=== PATIENT | male | born 1950 | race Caucasian/White ===

== ENCOUNTER 2025-01-07 15:35 | Inpatient (IN) ==
[2025-01-07] MEDS ORDERED: IOPAMIDOL 100 ML BOTTLE IV ONE (15:36)
[2025-01-07] MEDS: IPRATROPIUM/ALBUTEROL 3 ML AMPUL.NEB NEB ONE ×3 (15:50→21:37)
[2025-01-07] MEDS: 0.9 % SODIUM CHLORIDE 1,000 ML IV ONE (15:55)
[2025-01-07] MEDS: methylPREDNISolone SOD SUCC 125 MG/2 ML VIAL IV ONE (15:55)
[2025-01-07] MEDS: LEVOFLOXACIN 750 MG/150 ML BAG IV ONE (16:07)
[2025-01-07 16:35] LABS: Basophils # (Auto) 0.01 K/mcL (0.00-0.30); Basophils % (Auto) 0.1 % (0.0-2.0); Eosinophils # (Auto) 0 K/mcL (0.00-0.70); Eosinophils % (Auto) 0 % (0.0-7.0); Hematocrit 40.2 % (40.1-51.0); Hemoglobin 13.2 g/dL (13.7-17.5); Lymphocytes # (Auto) 2.17 K/mcL (1.50-4.80); Lymphocytes % (Auto) 23.8 % (15.5-49.0); Mean Cell Volume 88.9 fL (80.0-100.0); Mean Corpuscular HGB Conc 32.8 g/dL (31.0-36.0); Monocytes # (Auto) 1.06 K/mcL (0.10-0.90); Monocytes % (Auto) 11.6 % (1.0-12.0); Neutrophils % (Auto) 64.4 % (38.0-78.0); Platelet Count 330 K/mcL (140-440); RBC 4.52 M/mcL (4.63-6.08); Red Cell Distribution Width 13.7 % (11.5-14.5); WBC 9.1 K/mcL (4.5-11.0)
[2025-01-07 17:01] LABS: Prothrombin Time 14.2 sec (11.9-14.5)
[2025-01-07 17:04] LABS: ALT/SGPT 23 U/L (<40); AST/SGOT 32 U/L (<40); Albumin 3.9 gm/dL (3.2-5.2); Alkaline Phosphatase 102 U/L (39-117); Bilirubin,Total 0.6 mg/dL (0.1-1.0); Blood Urea Nitrogen 24 mg/dL (8-23); Calcium 8.7 mg/dL (8.6-10.4); Carbon Dioxide 24 mmol/L (22-30); Chloride 99 mmol/L (96-108); Globulin 3.9 gm/dL (2.2-3.7); Glomerular Filtration Rate 46; Glucose 132 mg/dL (70-105); Potassium 3.9 mmol/L (3.3-5.1); Sodium 137 mmol/L (133-145)
[2025-01-07] MEDS ORDERED: ONDANSETRON 4 MG/2 ML VIAL IV PRN (20:12)
[2025-01-07] MEDS ORDERED: SENNOSIDES 1 TABLET PO PRN (20:12)
[2025-01-07] MEDS ORDERED: METOCLOPRAMIDE 10 MG/2 ML VIAL IV PRN (20:12)
[2025-01-07] MEDS ORDERED: POLYETHYLENE GLYCOL 3350 17 GM PACKET PO PRN (20:12)
[2025-01-07] MEDS ORDERED: ACETAMINOPHEN 325 MG TABLET PO PRN (20:12)
[2025-01-07] MEDS ORDERED: POTASSIUM CHLORIDE 20 MEQ TABLET PO PRN ×2 (20:12)
[2025-01-07] MEDS ORDERED: MAGNESIUM SULFATE 2 GM/50 ML BAG IV PRN (20:12)
[2025-01-07] MEDS ORDERED: POTASSIUM CHLORIDE 40 MEQ in DEXTROSE 5% IN WATER 500 ML IV PRN (20:12)
[2025-01-07] MEDS: IPRATROPIUM/ALBUTEROL 3 ML AMPUL.NEB NEB SCH (20:17)
[2025-01-07] MEDS: AZITHROMYCIN 500 MG in 0.9 % SODIUM CHLORIDE 250 ML IV SCH (20:52)
[2025-01-07] MEDS: DOCUSATE SODIUM 100 MG CAPSULE PO SCH (21:16)
[2025-01-07] MEDS: hydrALAZINE 20 MG/ML VIAL IV PRN (21:16)
[2025-01-07] MEDS: BUDESONIDE 0.5 MG/2 ML AMPUL.NEB NEB SCH (21:37)
[2025-01-07 22:57] LABS: Appearance,Urine Clear (Clear); Bacteria,Urine Few /hpf (0); Bilirubin,Urine Negative (Negative); Color,Urine Yellow; Glucose,Urine (UA) Negative (Negative); Ketones,Urine Negative (Negative); Leukocyte Esterase,Urine Negative /uL (Negative); Nitrate,Urine Negative (Negative); PH,Urine 5.5 (5.0-9.0); Protein,Urine 100 mg/dL (Negative); Specific Gravity,Urine 1.015 (1.000-1.035); Urine Blood Negative ery/mcL (Negative); Urine RBC 0 /hpf (0-3); Urine Squamous Epithelial Cell 4 /hpf (0-4); Urine WBC 2 /hpf (0-4); Urobilinogen,Urine Normal
[2025-01-07] MEDS: methylPREDNISolone SOD SUCC 125 MG/2 ML VIAL IV SCH (23:31)
[2025-01-07] MEDS: LABETALOL HCL 20 MG/4 ML VIAL IV PRN (23:32)
[2025-01-08 06:38] LABS: ALT/SGPT 19 U/L (<40); AST/SGOT 24 U/L (<40); Albumin 3.7 gm/dL (3.2-5.2); Alkaline Phosphatase 92 U/L (39-117); Bilirubin,Direct 0.2 mg/dL (<0.3); Bilirubin,Total 0.4 mg/dL (0.1-1.0); Blood Urea Nitrogen 25 mg/dL (8-23); Calcium 8.6 mg/dL (8.6-10.4); Carbon Dioxide 20 mmol/L (22-30); Chloride 101 mmol/L (96-108); Globulin 3.6 gm/dL (2.2-3.7); Glomerular Filtration Rate 54; Glucose 145 mg/dL (70-105); Lactate Dehydrogenase 184 U/L (135-225); Potassium 4.8 mmol/L (3.3-5.1); Sodium 136 mmol/L (133-145); Triglycerides 45 mg/dL (<150); Uric Acid 5.7 mg/dL (2.5-8.0)
[2025-01-08] MEDS: ENOXAPARIN 40 MG/0.4 ML SYRINGE SQ SCH (08:58)
[2025-01-08] MEDS: IPRATROPIUM/ALBUTEROL 3 ML AMPUL.NEB NEB PRN (09:05)
[2025-01-08] MEDS ORDERED: OXYBUTYNIN CHLORIDE 5 MG TABLET PO PRN (10:13)
[2025-01-08] MEDS: OMEPRAZOLE 20 MG CAPSULE PO SCH (11:05)
[2025-01-08] MEDS: METOPROLOL SUCCINATE 25 MG TAB.XL.24H PO SCH (11:05)
[2025-01-08] MEDS: Tiotropium Bromide [Spiriva Respimat] 2.5 mcg/act INH SCH (11:06)
[2025-01-08] MEDS: methylPREDNISolone SOD SUCC 40 MG/ML VIAL IV SCH (14:06)
[2025-01-08] MEDS: PRAZOSIN 1 MG CAPSULE PO SCH (20:13)
[2025-01-09] MEDS: ATORVASTATIN 40 MG TABLET PO SCH (09:41)
[2025-01-09] MEDS: Alfuzosin 10 mg tablet extended release 24 hr PO SCH (09:43)
[2025-01-09] MEDS: NIFEdipine 30 MG TAB.XL.24H PO SCH (09:46)
[2025-01-09] MEDS: guaiFENesin/CODEINE 10 ML UDC PO PRN (10:06)
[2025-01-10 07:42] VITALS: TEMP 97.7
[2025-01-10] MEDS: NIFEdipine 30 MG TAB.XL.24H PO SCH (08:07)
[2025-01-10] MEDS: METOPROLOL SUCCINATE 50 MG TAB.XL.24H PO SCH (08:07)
[2025-01-10 08:38] VITALS: O2SAT 90
== END 2025-01-10 12:31 | disposition home or self-care (01) | DRG 189 ==
LOC: ED 15:35 → ICU 20:05 → MEDSUR 01-09 16:12
PROVIDERS: ADMIT Internal Medicine; ATTEND Internal Medicine